=== PATIENT | female | born 1995 | race Caucasian/White ===

== ENCOUNTER → 2017-09-12 | Outpatient (CLI) | payer BC ==
[~2017-09-12] MED LIST: ONDA4TAB7 SL; ZFRODT4 SL
[2017-09-12 18:12] LABS: PREG INTERNAL NEGATIVE QC NEG CLEAR BACKGROUND; PREG INTERNAL POSITIVE QC POS CONTROL LINE
[2017-09-12 18:18] LABS: BASO % 0.2 %; BASO ABS # 0.01 K/uL (0-0.2); COMPLETE YES; EOS % 0.5 %; HEMATOCRIT 42.6 % (37-47); LYMPH % 22.4 %; LYMPH ABS # 1.26 K/uL (1.2-3.4); MEAN CELL VOLUME 90.6 fL (80-100); MEAN CORPUSCULAR HEMOGLOBIN 31.7 pg (25-34); MEAN PLATELET VOLUME 10.1 fL (7.4-10.4); MONO % 8.5 %; NEUT % 68.4 %; PLATELET COUNT 236 K/uL (130-400); WHITE BLOOD COUNT 5.62 K/uL (4.8-10.8)
[2017-09-14 03:15] LABS: RAPID PLASMA REAGIN NONREACTIVE (NONREACT)
[2017-09-15 07:21] LABS: CHLAMYDIA TRACH RNA*** DETECTED (NOT DETECTED); GC (NEIS GONORRHOEAE)RNA** NOT DETECTED (NOT DETECTED)
[2017-09-16 03:56] LABS: HSV TYPE 1 DNA Not Detected (Not Detected); HSV TYPE 1&2 DNA SOURCE Whole Blood; HSV TYPE 2 DNA Not Detected (Not Detected)
== END | disposition home or self-care (01) ==
LOC: C.LABMFLN 12:58
PROVIDERS: ATTEND Family Medicine
DX: Z20.2 Contact with and (suspected) exposure to infections with a predominantly sexual mode of transmission (principal); N92.0 Excessive and frequent menstruation with regular cycle

== ENCOUNTER → 2018-05-07 | Outpatient (CLI) | payer BC | END | disposition home or self-care (01) | LOC: C.LABMFLN 14:07 | PROVIDERS: ATTEND Physician Assistant | DX: J02.9 Acute pharyngitis, unspecified (principal) ==

== ENCOUNTER 2023-01-03 07:32 | Inpatient (IN) ==
[2023-01-03] MEDS ORDERED: PENICILLIN G POTASSIUM 6 MU in DEXTROSE 5% 250 ML IV STA (07:53)
[2023-01-03] MEDS ORDERED: OXYTOCIN 30 UNITS/500 ML BAG IV PRN ×2 (07:53→08:18)
[2023-01-03] MEDS ORDERED: LIDOCAINE 1% LOCAL 20 ML VIAL INFIL PRN (07:53)
[2023-01-03] MEDS: LACTATED RINGER'S 1,000 ML IV PRN ×4 (07:55→21:45)
--- NOTE | 2023-01-03 08:12 | History & Physical Report ---
Date of Service January 03, 2023 Assessment & Plan (1) Supervision of normal first : Plan: Gross rupture of membranes 0600 this morning with concern for meconium stained fluid. (2) Carrier of group B Streptococcus: Plan: GBS positive. Treat with penicillin while in labor. History of Present Illness Primary Care Provider: Wisam Kwon MD Estefania is a 27 y/o female currently at 40 3/7 WGA with an LAILA 12/31/22 as determined by Ultrasound who is here for . Her was complicated by GBS+. Irregular contractions; + movement; + fluid loss; - bloody show Started to noticed loss of green tinged fluid around 0600 this morning. External FHT and external uterine monitors used; Category II tracing- variable decelerations; moderate FHT variability. Had regular appointments with OB. OB Labs: Blood Type O Positive 05/20/22 Antibody Screen NEGATIVE 05/20/22 Hemoglobin 11.6 g/dl (12.0-16.0) L 10/08/22 Hematocrit 32.4 % (34.1-44.9) L 10/08/22 Mean Corpuscular Volume 89.0 fL (80.0-100.0) 05/20/22 Platelet Count 270 K/uL (130-400) 05/20/22 Varicella-Zoster IgG Antibody 500.10 INDEX 06/11/18 Rubella IgG Antibody Immune (Immune) 05/20/22 Rapid Plasma Reagin Nonreactive (Nonreactive) 05/20/22 Hepatitis B Surface Antigen. NON-REACTIVE (NON-REACTIVE) 05/20/22 Hepatitis C Antibody (EIA) NON-REACTIVE (NON-REACTIVE) 05/20/22 HIV (1&2) Ab and P24 Ag, 4th Gener NEG (NEG) 09/12/17 HIV (1&2) Ag and Ab Confirmation NON-REACTIVE (NON-REACTIVE) 05/20/22 Glucose 1 Hour 50 gm Load 109 mg/dl (70-130) 10/08/22 OB Optional Labs: Chlamydia trachomatis RNA NOT DETECTED (NOT DETECTED) 06/18/22 Neisseria gonorrhoeae RNA NOT DETECTED (NOT DETECTED) 06/18/22 Thyroid Stimulating Hormone (TSH) 0.357 uIu/ml (0.300-4.500) 06/25/21 Labs Reviewed: gbs positive urine Allergies Allergy/AdvReac Type Severity Reaction Status Date / Time No Known Allergies Allergy Mild Verified 12/31/22 16:23 Home Medications Medication Instructions Recorded Confirmed Type prenat.vits,jozef,[id number] 1 tab PO DAILY 05/15/22 12/31/22 History metoclopramide HCl 10 mg 10 mg PO Q6H PRN nausea and 06/18/22 12/31/22 Rx disintegrating tablet vomiting #30 tabs metoclopramide HCl 10 mg tablet 10 mg PO Q6H PRN nausea and 06/25/22 12/31/22 Rx vomiting #20 tabs Patient History Medical History (Updated 05/23/22 @ 10:50 by Hedy Mathis) Atypical squamous cells of undetermined significance (ASC-US) on cervical Pap smear Chlamydia HPV test positive Impacted tooth Varicella vaccination Surgical History (Updated 05/15/22 @ 11:27 by Alexia Wilkins) S/P knee surgery S/P wisdom tooth extraction Family History (Updated 05/15/22 @ 11:01 by Alexia Wilkins) Mother Endometriosis Denies family history of Ovarian cancer Breast cancer Colorectal cancer Social History (Updated 05/15/22 @ 11:03 by Alexia Wilkins) Smoking Status: Never smoker Hx Alcohol Use: No Hx Substance Use: No Preferred Language: Vietnamese 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 Beliefs That Will Affect Care: None marital status: Single marital status details: susan Jade Art (25) [phone] Current Living Situation: Significant Other Current Living Situation Comment: 2 step children current occupational status: employed current occupation: [employer] Feels Safe at Home: Yes Safety Concerns: Feels Safe At This Time OB History History : 1 Full term: 0 Premature: 0 Total Number of Induced Abortions: 0 Total Number of Spontaneous Abortions: 0 Ectopics: 0 Multiple births: 0 Number of Living Children: 0 [employer] History Menstrual History Last menstrual period: Yes Menstrual reliability: definite Flow: normal Menstrual regularity: irregular Monthly: No Age at menarche: 14 On control pills at conception: No Date of positive home test: 04/20/22 Menstrual history comments: cycles 42 days Details: last pap 03/24/2020 ASCUS, +HPV TK Marina Review of Systems Denies fever, chills, sweats Denies shortness of breath, difficulty breathing, chest pain, palpitations, chest pressure. Denies breast pain. Denies dysuria. Denies headache or changes in vision. Physical Exam Physical Exam: General: Alert, oriented. No acute distress. Cardiac: Regular rate and rhythm, no murmurs/rubs/gallops. Respiratory: Clear to auscultation bilaterally a/p, no wheezes/rales/rhonchi. No increased work of breathing. Symmetrical chest rise. No respiratory distress. Abdomen: Gravid Pelvic: See attending attestation Lower Extremities: No lower extremity edema or swelling. No deep calf pain. Vasyl's negative bilaterally Results & Data Vital Signs (Past 12 Hours) Vital Signs Pulse BP 01/03/23 07:43 101 H 126/81 Supervising Physician Co-Signing Physician Notes Resident Physician Supervision Note: I interviewed and examined the patient. Discussed with Dr. Ramirez and agree with findings and plan as documented in the note. Any exceptions or clarifications are listed here: 27 yo G1 at 40 3/7 wga presents w/ PROM w/ mec fluid. +FM; denies reg ctx an VB. 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 PNI: GBS. VSS, fetus cat 2 initially but now cat 1 but not significant accels. irreg ctx. SVE 1.5/20/-2, cephalic confirmed by BSUS. Discussed induction w/ pit given GBS, mec fluid. Discussed potential for inability to tolerate labor regardless of pit or laboring on its own due to mec but will need to see, pt verbalized understanding. Will start pit, epidural prn Documented By: Alison Hernandez MD Resident Activity Tracking Resident Involvement: Resident Care Provided Care Provided: OB Delivery
[2023-01-03 08:40] LABS: Hematocrit (blood only) 32.3 % (37.0-47.0); Hemoglobin 11.2 g/dl (12.0-16.0); Mean Corpuscular Hgb Conc 34.7 g/dL (32.0-36.0); Mean Corpuscular Volume 92.3 fL (80.0-100.0); Platelet Count 225 K/uL (130-400); RDW Coefficient of Variation 13.1 % (11.5-14.5); RDW Standard Deviation 42.9 fL (36.4-46.3); White Blood Count 9.87 K/ul (4.8-10.8)
[2023-01-03] MEDS: PENICILLIN G POTASSIUM 3 MU in DEXTROSE 5% 100 ML IV PRN ×3 (12:27→20:46)
[2023-01-03] MEDS ORDERED: ePHEDrine sulfate 50 MG/ML AMP ONE (13:05)
[2023-01-03] MEDS ORDERED: fentaNYL citrate PF 100 MCG/2 ML VIAL ONE ×2 (13:06→22:53)
[2023-01-03] MEDS ORDERED: BUPIVACAINE 0.25% PF 30 ML VIAL ONE ×2 (13:06→23:00)
[2023-01-03] MEDS ORDERED: LIDOCAINE 2%/EPINEPHRINE 1:200,000 20 ML PF ONE (13:06)
[2023-01-03] MEDS ORDERED: SODIUM CHLORIDE 0.9% PF INJ 10 ML VIAL ONE ×2 (13:06→22:53)
[2023-01-03] MEDS ORDERED: fentaNYL 2MCG/ML ROPIVACAINE 1.25MG/ML 100 ML BAG EPI ONE (13:06)
[2023-01-03] MEDS ORDERED: diphenhydrAMINE 50 MG/ML VIAL IV PRN (13:24)
[2023-01-03] MEDS ORDERED: NALOXONE HCL 0.4 MG/1 ML VIAL/CARP IV PRN (13:24)
[2023-01-03] MEDS ORDERED: ePHEDrine sulfate 50 MG/ML AMP IV PRN (13:24)
[2023-01-03] MEDS ORDERED: NALOXONE HCL 1 MG in SODIUM CHLORIDE 0.9% 1000ML 1,000 ML IV PRN (13:24)
[2023-01-03] MEDS ORDERED: NALBUPHINE HCL INJ 10 MG/ML AMP IV PRN (13:24)
--- NOTE | 2023-01-03 13:24 | Anesthesiology Consultation ---
Date of Service January 03, 2023 Assessment & Plan (1) Encounter for pre-operative examination: Chart Review Chart Review: Patient NOT seen in Pre Admission Testing and Acceptable Risk for Labor Epidural Consults Requested none History Height/Weight Height: 5 ft 4 in Weight: 76.296 kg Allergies Allergy/AdvReac Type Severity Reaction Status Date / Time No Known Allergies Allergy Mild Verified 12/31/22 16:23 Medications Home Medications Medication Instructions Recorded Confirmed Last Taken prenat.vits,jozef,evv-oouk-ygzwk 1 tab PO DAILY 05/15/22 12/31/22 Unknown metoclopramide HCl 10 mg 10 mg PO Q6H PRN nausea and 06/18/22 12/31/22 Unknown disintegrating tablet vomiting #30 tabs metoclopramide HCl 10 mg tablet 10 mg PO Q6H PRN nausea and 06/25/22 12/31/22 Unknown vomiting #20 tabs Active Medications Generic Name Dose Route Start Last Admin Trade Name Freq PRN Reason Stop Dose Admin Penicillin G Potassium 3 mu/ 106 mls @ 100 mls/hr 01/03/23 10:53 01/03/23 12:27 Dextrose IV 01/13/23 10:52 100 mls/hr Q4H PRN Administration GBS(+) Until Delivery Lactated Ringer's 1,000 mls @ 125 mls/hr 01/03/23 07:53 01/03/23 13:01 Lr IV 01/05/23 07:52 Infused .Q8H PRN Infusion L&D Protocol Protocol Oxytocin 30 units in 500 mls @ 5 mls/hr 01/03/23 08:18 01/03/23 12:10 Pitocin IV 01/05/23 08:17 0.3 units/hr .Q24H PRN 5 mls/hr Labor Induction/Augmentation Titration Protocol 0.3 UNITS/HR Past Medical History Medical History Atypical squamous cells of undetermined significance (ASC-US) on cervical Pap smear Chlamydia HPV test positive Impacted tooth Varicella vaccination Past Family History Family History Mother Endometriosis Denies family history of Ovarian cancer Breast cancer Colorectal cancer Past Surgical History Surgical History S/P knee surgery S/P wisdom tooth extraction Social History Smoking Status: Never smoker Hx Alcohol Use: No Hx Substance Use: No Physical Exam Vital Signs Last Vital Signs Temp 98.2 F 01/03/23 10:55 Pulse 88 01/03/23 13:22 Resp 22 01/03/23 10:55 BP 126/81 01/03/23 07:43 Pulse Ox 99 01/03/23 13:22 Testing Laboratory Results 01/03/23 08:18
[2023-01-03] MEDS: fentaNYL 2MCG/ML ROPIVACAINE 1.25MG/ML 100 ML BAG EPI PRN ×2 (13:40→21:41)
--- NOTE | 2023-01-03 15:19 | Labor Progress Brief Note ---
Date of Service January 03, 2023 Subjective comfortable w/ epidural Assessment & Plan (1) Carrier of group B Streptococcus: (2) Supervision of normal first : Plan 27 yo G1 at 40 3/7 wga admitted w/ mec prom VSS Fetus cat 1 Labor - pit induction, good progress in effacment and station GBS+, pcn ordered epidural in place Admission and Anticipated Discharge Date Admission Date: January 03, 2023 Physical Exam Genitourinary: Manual OB Exam: + cervical dilation 2 cm, + cervical effacement 50% and + station -2 OB Exam Monitor Tracing: + external uterine monitor used (2-4) and + category I (125/mod/+accel/intermit early) Results & Data Vital Signs (Past 12 Hours) Vital Signs Temp Pulse Resp BP Pulse Ox 01/03/23 07:58 98.4 F 22 01/03/23 15:12 99 01/03/23 15:12 85 01/03/23 15:11 77 01/03/23 15:11 96/54 L 01/03/23 15:07 98 01/03/23 15:07 81 01/03/23 15:02 98 01/03/23 15:02 81 01/03/23 14:57 99 01/03/23 14:57 81 01/03/23 14:52 99 01/03/23 14:52 79 01/03/23 14:47 99 01/03/23 14:47 74 01/03/23 14:44 88 01/03/23 14:44 97/62 L 01/03/23 14:42 99 01/03/23 14:42 80 01/03/23 14:37 99 01/03/23 14:37 103 H 01/03/23 14:32 99 01/03/23 14:32 91 H 01/03/23 14:32 81 01/03/23 14:32 104/72 01/03/23 14:27 99 01/03/23 14:27 76 01/03/23 14:23 97 H 01/03/23 14:23 101/70 01/03/23 14:22 98 01/03/23 14:22 85 01/03/23 14:17 99 01/03/23 14:17 110 H 01/03/23 14:13 88 01/03/23 14:13 105/75 01/03/23 14:12 99 01/03/23 14:12 73 01/03/23 14:07 99 01/03/23 14:07 83 01/03/23 14:02 99 01/03/23 14:02 114 H 01/03/23 14:02 106 H 01/03/23 14:02 99/69 L 01/03/23 13:57 98 01/03/23 13:57 99 H 01/03/23 13:54 18 01/03/23 13:54 98.2 F 18 01/03/23 13:52 98 01/03/23 13:52 105 H 01/03/23 13:51 90 01/03/23 13:51 106/63 01/03/23 13:49 103 H 01/03/23 13:49 111/69 01/03/23 13:47 98 01/03/23 13:47 84 01/03/23 13:47 119/67 01/03/23 13:45 75 01/03/23 13:45 120/62 01/03/23 13:44 99 H 01/03/23 13:44 122/58 L 01/03/23 13:42 99 01/03/23 13:42 99 H 01/03/23 13:41 84 01/03/23 13:41 113/75 01/03/23 13:39 85 01/03/23 13:39 124/81 01/03/23 13:37 99 01/03/23 13:37 84 01/03/23 13:37 115/74 01/03/23 13:35 75 01/03/23 13:35 127/78 01/03/23 13:32 99 01/03/23 13:32 93 H 01/03/23 13:27 100 01/03/23 13:27 91 H 01/03/23 13:22 99 01/03/23 13:22 88 01/03/23 13:17 100 01/03/23 13:17 89 01/03/23 10:55 22 01/03/23 10:55 98.2 F 22 01/03/23 07:43 101 H 126/81 Coding Level of Care Code None Diagnoses Carrier of group B Streptococcus Z22.330 Supervision of normal first Z34.00
[2023-01-03] MEDS ORDERED: NURSING L&D Epidural Breakthrough Pain Update ONE (20:24)
--- NOTE | 2023-01-03 20:26 | Labor Progress Brief Note ---
Date of Service January 03, 2023 Subjective called by nursing due to variables, pit turned off and pt repositioned Assessment & Plan (1) Carrier of group B Streptococcus: (2) Supervision of normal first : Plan 27 yo G1 at 40 3/7 wga admitted w/ mec prom VSS Fetus cat 1 Labor - pit d/c'd at 9, SVE demosntrated progress from prior exam. Will let baby recover, consider iupc placement and amnioinfusion if need as well GBS+, pcn ordered epidural in place Admission and Anticipated Discharge Date Admission Date: January 03, 2023 Physical Exam Genitourinary: Manual OB Exam: + cervical dilation 4 cm, + cervical effacement 70% and + station -1 OB Exam Monitor Tracing: + external uterine monitor used (2-4) and + category II (125/mod/variables) Results & Data Vital Signs (Past 12 Hours) Vital Signs Temp Pulse Resp BP Pulse Ox 01/03/23 20:17 98 01/03/23 20:17 80 01/03/23 20:12 98 01/03/23 20:12 92 H 01/03/23 20:07 99 01/03/23 20:07 86 01/03/23 20:02 99 01/03/23 20:02 86 01/03/23 19:57 99 01/03/23 19:57 102 H 01/03/23 19:54 92 H 01/03/23 19:54 114/90 01/03/23 19:52 99 01/03/23 19:52 79 01/03/23 19:47 99 01/03/23 19:47 82 01/03/23 19:42 97 01/03/23 19:42 122 H 01/03/23 19:39 81 01/03/23 19:39 97/59 L 01/03/23 19:37 99 01/03/23 19:37 79 01/03/23 19:32 99 01/03/23 19:32 80 01/03/23 19:27 99 01/03/23 19:27 80 01/03/23 19:00 18 01/03/23 19:00 98.4 F 18 01/03/23 19:24 81 01/03/23 19:24 98/61 L 01/03/23 19:22 99 01/03/23 19:22 84 01/03/23 19:17 99 01/03/23 19:17 86 01/03/23 19:12 98 01/03/23 19:12 77 01/03/23 19:09 75 01/03/23 19:09 98/62 L 01/03/23 19:07 98 01/03/23 19:07 81 01/03/23 19:02 97 01/03/23 19:02 82 01/03/23 18:57 98 01/03/23 18:57 83 01/03/23 18:54 94 H 01/03/23 18:54 101/66 01/03/23 18:52 98 01/03/23 18:52 78 01/03/23 18:47 99 01/03/23 18:47 76 01/03/23 18:42 98 01/03/23 18:42 82 01/03/23 18:40 77 01/03/23 18:40 115/64 01/03/23 18:37 98 01/03/23 18:37 80 01/03/23 18:32 98 01/03/23 18:32 80 01/03/23 18:27 99 01/03/23 18:27 81 01/03/23 18:26 81 01/03/23 18:26 110/68 01/03/23 18:22 98 01/03/23 18:22 84 01/03/23 18:17 98 01/03/23 18:17 75 01/03/23 18:12 97 01/03/23 18:12 87 01/03/23 18:09 77 01/03/23 18:09 104/68 01/03/23 18:07 99 01/03/23 18:07 85 01/03/23 18:02 99 01/03/23 18:02 82 01/03/23 17:57 99 01/03/23 17:57 83 01/03/23 17:54 77 01/03/23 17:54 113/68 01/03/23 17:52 100 01/03/23 17:52 84 01/03/23 17:47 98 01/03/23 17:47 80 01/03/23 17:42 99 01/03/23 17:42 78 01/03/23 17:39 78 01/03/23 17:39 110/70 01/03/23 17:37 98 01/03/23 17:37 81 01/03/23 17:32 99 01/03/23 17:32 77 01/03/23 17:27 99 01/03/23 17:27 86 01/03/23 17:25 90 01/03/23 17:25 122/79 01/03/23 17:22 100 01/03/23 17:22 89 01/03/23 17:17 100 01/03/23 17:17 86 01/03/23 17:12 100 01/03/23 17:12 84 01/03/23 17:09 75 01/03/23 17:09 95/57 L 01/03/23 17:07 99 01/03/23 17:07 69 01/03/23 17:02 99 01/03/23 17:02 87 01/03/23 16:57 100 01/03/23 16:57 78 01/03/23 16:55 76 01/03/23 16:55 98/55 L 01/03/23 16:52 99 01/03/23 16:52 91 H 01/03/23 16:47 99 01/03/23 16:47 69 01/03/23 16:42 100 01/03/23 16:42 85 01/03/23 16:39 74 01/03/23 16:39 95/53 L 01/03/23 16:37 100 01/03/23 16:37 81 01/03/23 16:32 100 01/03/23 16:32 70 01/03/23 16:31 18 01/03/23 16:31 98.2 F 18 01/03/23 16:27 100 01/03/23 16:27 82 01/03/23 16:25 78 01/03/23 16:25 92/52 L 01/03/23 16:22 100 01/03/23 16:22 82 01/03/23 16:17 99 01/03/23 16:17 76 01/03/23 16:12 99 01/03/23 16:12 85 01/03/23 16:09 86 01/03/23 16:09 92/52 L 01/03/23 16:07 98 01/03/23 16:07 80 01/03/23 16:02 98 01/03/23 16:02 84 01/03/23 15:57 99 01/03/23 15:57 85 01/03/23 15:54 83 01/03/23 15:54 93/54 L 01/03/23 15:52 99 01/03/23 15:52 79 01/03/23 15:47 99 01/03/23 15:47 81 01/03/23 15:42 99 01/03/23 15:42 90 01/03/23 15:39 79 01/03/23 15:39 97/57 L 01/03/23 15:37 98 01/03/23 15:37 79 01/03/23 15:32 100 01/03/23 15:32 80 01/03/23 15:27 100 01/03/23 15:27 81 01/03/23 15:24 78 01/03/23 15:24 94/53 L 01/03/23 15:22 100 01/03/23 15:22 79 01/03/23 15:17 98 01/03/23 15:17 81 01/03/23 15:12 99 01/03/23 15:12 85 01/03/23 15:11 77 01/03/23 15:11 96/54 L 01/03/23 15:07 98 01/03/23 15:07 81 01/03/23 15:02 98 01/03/23 15:02 81 01/03/23 14:57 99 01/03/23 14:57 81 01/03/23 14:52 99 01/03/23 14:52 79 01/03/23 14:47 99 01/03/23 14:47 74 01/03/23 14:44 88 01/03/23 14:44 97/62 L 01/03/23 14:42 99 01/03/23 14:42 80 01/03/23 14:37 99 01/03/23 14:37 103 H 01/03/23 14:32 99 01/03/23 14:32 91 H 01/03/23 14:32 81 01/03/23 14:32 104/72 01/03/23 14:27 99 01/03/23 14:27 76 01/03/23 14:23 97 H 01/03/23 14:23 101/70 01/03/23 14:22 98 01/03/23 14:22 85 01/03/23 14:17 99 01/03/23 14:17 110 H 01/03/23 14:13 88 01/03/23 14:13 105/75 01/03/23 14:12 99 01/03/23 14:12 73 01/03/23 14:07 99 01/03/23 14:07 83 01/03/23 14:02 99 01/03/23 14:02 114 H 01/03/23 14:02 106 H 01/03/23 14:02 99/69 L 01/03/23 13:57 98 01/03/23 13:57 99 H 01/03/23 13:54 18 01/03/23 13:54 98.2 F 18 01/03/23 13:52 98 01/03/23 13:52 105 H 01/03/23 13:51 90 01/03/23 13:51 106/63 01/03/23 13:49 103 H 01/03/23 13:49 111/69 01/03/23 13:47 98 01/03/23 13:47 84 01/03/23 13:47 119/67 01/03/23 13:45 75 01/03/23 13:45 120/62 01/03/23 13:44 99 H 01/03/23 13:44 122/58 L 01/03/23 13:42 99 01/03/23 13:42 99 H 01/03/23 13:41 84 01/03/23 13:41 113/75 01/03/23 13:39 85 01/03/23 13:39 124/81 01/03/23 13:37 99 01/03/23 13:37 84 01/03/23 13:37 115/74 01/03/23 13:35 75 01/03/23 13:35 127/78 01/03/23 13:32 99 01/03/23 13:32 93 H 01/03/23 13:27 100 01/03/23 13:27 91 H 01/03/23 13:22 99 01/03/23 13:22 88 01/03/23 13:17 100 01/03/23 13:17 89 01/03/23 10:55 22 01/03/23 10:55 98.2 F 22 Coding Level of Care Code None Diagnoses Carrier of group B Streptococcus Z22.330 Supervision of normal first Z34.00
--- NOTE | 2023-01-03 23:04 | Anesthesia Procedure Note ---
Date of Service January 03, 2023 Anesthesia Epidural Re-Dose Vital Signs Temp Pulse Resp BP Pulse Ox 98.4 F 96 H 18 111/80 97 01/03/23 21:00 01/03/23 23:02 01/03/23 22:30 01/03/23 23:02 01/03/23 22:57 Notes Pain Intensity: 8 Dilatation (cm): 8.0 Effacement (%): 90 Called by nursing to evaluate epidural as the patient is having increased pain. The epidural was re-dosed with the following medications (all medications via epidural route) after negative aspiration of the epidural catheter for CSF/HEME. 0.125 % Bupivicaine (8ml) with 100 mcg Fentanyl After Epidural Re-Dose Mental Status: alert / awake / arousable Pain: improving with treatment Airway Patency, RR, SpO2: stable & adequate BP & HR: stable & adequate
[2023-01-04] MEDS: LACTATED RINGER'S 1,000 ML IV PRN (01:33)
[2023-01-04] MEDS: PENICILLIN G POTASSIUM 3 MU in DEXTROSE 5% 100 ML IV PRN (01:35)
[2023-01-04] MEDS: fentaNYL 2MCG/ML ROPIVACAINE 1.25MG/ML 100 ML BAG EPI PRN (02:48)
--- NOTE | 2023-01-04 03:41 | Delivery Summary ---
Vaginal Delivery Summary Date of Service January 04, 2023 Vaginal Delivery Summary PREOPERATIVE DIAGNOSIS: 1. Single intrauterine at 40 4/7 wga 2. Premature rupture of membranes 3. Thick meconium 4. GBS+ POSTOPERATIVE DIAGNOSIS: 1. Single intrauterine at 40 4/7 wga 2. Premature rupture of membranes 3. Thick meconium 4. GBS+ 5. Delivered PROCEDURE: 1. Normal spontaneous vaginal delivery. SURGEON: Alison Hernandez MD ANESTHESIA: Epidural. ESTIMATED BLOOD LOSS: 300 mL FLUIDS: Continuous LR. URINE OUTPUT: None. COMPLICATIONS: None. CONDITION: Stable. INDICATIONS: 27 yo G1 at 40 4/7 wga presented yesterday morning with c/o LOF that was green. She was found to be grossly ruptured with moderately thick meconium fluid and 1.5cm. She was started on penicillin for GBS+ status. Induction was begun with pitocin and she received an epidural for pain control. Variable decels were noted when pt was approx 4-5cm and pitocin was discontinued and allowed to recover. The fetus slowly recovered but continued to intermittently have variables so IUPC was placed and amnioinfusion performed which improved tracing. Pitocin was able to be restarted slowly but prior to this time the pt made slow cervical change as well. She did progress to complete and desired to push. FINDINGS: A viable female , weight pending with Apgars of 7 and 8 at 1 and 5 minutes respectively. SPECIMEN: Cord blood OPERATIVE REPORT: The patient progressed to 10 cm, 100% effaced and +2 station, pushed over intact perineum with anesthesia to deliver a viable female , weight and Apgars as above. Head of delivered in BARBIE position. Tight nuchal/body cord was noted and then wrapped around foot. Body and shoulders were delivered without difficulty. was delivered to maternal abdomen and nursing staff. Delayed cord clamping was performed for 60 seconds. Cord was clamped and cut. Cord blood was obtained. Placenta delivered spontaneously intact with 3-vessel cord. IV oxytocin and fundal massage were given for excellent hemostasis. Vagina, cervix, perineum, and placenta were inspected. A small abrasion was noted just at introitus and made hemostatic with a figure of eight stitch. Bilateral labial abrasions were hemostatic and not needed to be repaired. Sponge and needle counts correct x2. No sponges were left behind. Mother and stable in immediate period. [facility] [place]aginal Delivery Charge Vaginal Delivery Codes: 60887 global code for the antepartum, delivery, and post- Delivery Type Details:
[2023-01-04] MEDS ORDERED: BENZOCAINE 20% AER SPR 82.5 GM CAN EXT PRN (03:57)
[2023-01-04] MEDS ORDERED: HYDROCORTISONE ACETATE 25 MG SUPP PR PRN (03:57)
[2023-01-04] MEDS ORDERED: DIPHTHERIA/TETANUS/PERTUSSIS 0.5mL SYR/VIAL (Age 7+yrs) IM ONE (03:57)
[2023-01-04] MEDS ORDERED: OXYTOCIN 30 UNITS/500 ML BAG IV PRN (03:57)
[2023-01-04] MEDS: IBUPROFEN 600 MG TAB PO PRN ×4 (06:12→20:06)
[2023-01-04] MEDS: FERROUS SULFATE 325 MG TAB PO SCH (08:18)
[2023-01-04] MEDS: PRENATAL VITAMIN 1 TAB PO SCH (08:18)
[2023-01-04] MEDS: DOCUSATE SODIUM 100 MG CAP PO SCH ×2 (08:18→20:06)
--- NOTE | 2023-01-04 08:36 | Anesthesia Procedure Note ---
Date of Service January 04, 2023 Anesthesia Post Epidural Note Vital Signs Vital Signs: Temp Pulse Resp BP Pulse Ox 36.9 C 85 18 108/62 96 01/04/23 05:30 01/04/23 06:12 01/04/23 05:30 01/04/23 06:12 01/04/23 03:17 Pain Intensity Bilateral Abdomen: Pain Intensity: 6 Bilateral Episiotomy/Laceration: Pain Intensity: 2 Notes Mental Status: alert / awake / arousable Nausea / Vomiting: adequately controlled Pain: adequately controlled Airway Patency, RR, SpO2: stable & adequate BP & HR: stable & adequate Hydration State: stable & adequate Neuraxial Anesthesia: was administered and sensory block is resolving Anesthetic Complications: no major complications apparent Epidural: Removed without complications and With tip intact
[2023-01-04] MEDS: ACETAMINOPHEN 325 MG TAB PO PRN ×2 (09:26→23:16)
[2023-01-05] MEDS: IBUPROFEN 600 MG TAB PO PRN ×2 (04:41→08:34)
--- NOTE | 2023-01-05 07:19 | Obstetrical Progress Note ---
Date of Service January 05, 2023 Assessment & Plan (1) Normal vaginal delivery: Patient recovering well and desires D/C today. Instructions reviewed. Subjective Ambulation: ambulating normally Voiding: no voiding problems Passing Gas:: Yes Diet Tolerance:: regular diet Lochia:: Small Feeding Type:: breast feeding Physical Exam Constitutional WD/WN, vitals as above Eyes PERRL, conjunctivae normal, anicteric sclerae Neck normal visual inspection Respiratory normal respiratory effort and able to speak in complete sentences; no respiratory distress and no labored breathing Cardiovascular Rate/Rhythm: regular rate and regular rhythm Extremities: no edema Chest (Breasts) Chest: normal inspection of chest Gastrointestinal (Abdomen) Inspection/Auscultation: abdomen normal to inspection Soft, postgravid Psychiatric A+Ox3, euthymic affect Genitourinary OB Exam Abdomen: + fundal height Fundus: + firm and + relation to umbilicus (fun dus just below umbilicus); not tender Results & Data Vital Signs (Past 12 Hours) Vital Signs Temp Pulse Resp BP Pulse Ox O2 Del Method 01/05/23 04:06 98.1 F 70 18 107/73 97 Room Air 01/04/23 23:08 98.4 F 64 18 109/69 96 Room Air 01/04/23 20:35 98.6 F 79 18 116/75 97 Room Air
[2023-01-05] MEDS: PRENATAL VITAMIN 1 TAB PO SCH (08:32)
[2023-01-05] MEDS: DOCUSATE SODIUM 100 MG CAP PO SCH (08:32)
[2023-01-05] MEDS: FERROUS SULFATE 325 MG TAB PO SCH (08:32)
[2023-01-05] MEDS ORDERED: bisacodyL 5 MG TABEC PO SCH (20:00)
[2023-01-06] MEDS ORDERED: bisacodyL 10 MG SUPP PR PRN
== END 2023-01-05 12:53 | disposition home or self-care (01) | DRG 807 ==
LOC: OPB 07:32 → 4S1 07:40 → 4E2 01-04 06:36